=== PATIENT | female | born 1985 | race African-American/Black ===

== ENCOUNTER 2017-04-28 10:44 | Inpatient (IN) | payer OTHER ==
[~2017-04-28] VITALS: Ht 167.6 cm; Wt 122.5 kg
--- NOTE | 2017-04-28 13:34 | History & Physical ---
General Information and HPI MD Statement: I have seen and personally examined QUINN BAILEY and documented this H&P. The patient is a 32 year old female at 40[] weeks and4 [] days gestation who presented with a chief complaint of []. 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 No Contractions: Q 3 MINUTES Patient for Induction? No Labs Blood Type & Rh: O POSITIVE Antibody Screen: NEG Hct/Hgb & Platelets #1: Hct/Hgb & Platelets #2: Rubella: IMMUNE VDRL #1: NR VDRL #2: NR HbsAg: NEG HIV #1: NEG HIV #2 NEG 1 Hr P Group B Strep: NEG Initial Ultrasound: NL Anatomy Ultrasound: NL Genetic Testing: NL Assessment/Plan As Ranked By This Provider Problem List: 1. Core Measures/Miscellaneous Venous Thromboembolism VTE Risk Factors: / VTE Contraindications: No Contraindications VTE Diagnosis: No Beta Mago Is Beta Mago a Home Med? No Antibiotics Is Patient on Antibiotics? No
[2017-04-28 13:56] LABS: ABSOLUTE BASOPHIL COUNT 0 /CUMM (0.0-0.2); ABSOLUTE EOSINOPHIL COUNT 0 /CUMM (0.0-0.7); ABSOLUTE GRANULOCYTE CT 9.2 /CUMM (1.4-6.5); ABSOLUTE LYMPH COUNT 1.6 /CUMM (1.2-3.4); ABSOLUTE MONOCYTE COUNT 0.8 /CUMM (0.10-0.60); BASOPHIL % 0.1 % (0.0-2.0); EOSINOPHIL % 0.1 % (0-5); GRANULOCYTE % 79.1 % (42.2-75.2); HEMATOCRIT 32.2 % (37-47); MEAN CORPUSCULAR HGB 25.7 PG (27.0-31.0); MEAN CORPUSCULAR HGB CONC 32.3 G/DL (33.0-37.0); MEAN CORPUSCULAR VOLUME 79.5 FL (81.0-99.0); MEAN PLATELET VOLUME 8.4 FL (7.4-10.4); PLATELET COUNT 301 /CUMM (130-400); RBC DISTRIBUTION WIDTH 16.3 % (11.5-14.5); RED BLOOD CELL CT 4.05 /CUMM (4.20-5.40); WHITE BLOOD CELL COUNT 11.6 /CUMM (4.8-10.8)
[2017-04-28] MEDS ORDERED: PRENATABS RX T1 EACH PO (13:58)
[2017-04-28] MEDS ORDERED: FERRALET 90 TA1 EACH PO (14:01)
--- NOTE | 2017-04-28 17:57 | Labor & Delivery Summary ---
Delivery Summary Vaginal Delivery: Vaginal: vertex : : vacuum (POOR MATERNAL EFFORT DELIVERY ) Episiotomy/Lacerations: Type: MIDLINE Repair: 3 O Anesthesia: CHLROPROCAINE Placenta: Placenta: spontanteous, normal, 3 vessel Anesthesia: block Additional Comments: Vacuum assisted vaginal delivery secondary to poor maternal effort and meconium. Third application of vacuum was spontaneous delivery of vertex over on midline episiotomy without extension cord was doubly clamped and cut infant was handed rn outpatient surgery was present for the resuscitation on the repair was done under local block with 30 on the rectum and cervix were checked for sutures after repair the placenta was delivered by continuous cord traction intact 3 vessel cord and sent to pathology EBL 500 patient's blood type is Rh+
[2017-04-28 21:32] VITALS: BP 122/66
[2017-04-29 08:14] LABS: ABSOLUTE BASOPHIL COUNT 0 /CUMM (0.0-0.2); ABSOLUTE EOSINOPHIL COUNT 0 /CUMM (0.0-0.7); ABSOLUTE GRANULOCYTE CT 19.3 /CUMM (1.4-6.5); ABSOLUTE MONOCYTE COUNT 1.1 /CUMM (0.10-0.60); BASOPHIL % 0.2 % (0.0-2.0); EOSINOPHIL % 0.1 % (0-5); MEAN CORPUSCULAR HGB 26.5 PG (27.0-31.0); MEAN CORPUSCULAR VOLUME 80.2 FL (81.0-99.0); MEAN PLATELET VOLUME 8.4 FL (7.4-10.4); RBC DISTRIBUTION WIDTH 16.6 % (11.5-14.5)
[2017-04-29 08:57] LABS: GRANULOCYTE % 90.1 % (42.2-75.2); HEMATOCRIT 26.4 % (37-47); PLATELET COUNT 226 /CUMM (130-400); WHITE BLOOD CELL COUNT 21.4 /CUMM (4.8-10.8)
[2017-04-30 08:45] LABS: ABSOLUTE BASOPHIL COUNT 0 /CUMM (0.0-0.2); ABSOLUTE EOSINOPHIL COUNT 0.1 /CUMM (0.0-0.7); ABSOLUTE GRANULOCYTE CT 13.3 /CUMM (1.4-6.5); ABSOLUTE LYMPH COUNT 1.1 /CUMM (1.2-3.4); ABSOLUTE MONOCYTE COUNT 1.4 /CUMM (0.10-0.60); BASOPHIL % 0 % (0.0-2.0); EOSINOPHIL % 0.4 % (0-5); GRANULOCYTE % 83.9 % (42.2-75.2); HEMATOCRIT 23.9 % (37-47); MEAN CORPUSCULAR HGB 25.7 PG (27.0-31.0); MEAN CORPUSCULAR HGB CONC 32.3 G/DL (33.0-37.0); MEAN CORPUSCULAR VOLUME 79.6 FL (81.0-99.0); MEAN PLATELET VOLUME 8.1 FL (7.4-10.4); PLATELET COUNT 196 /CUMM (130-400); RBC DISTRIBUTION WIDTH 16.8 % (11.5-14.5); RED BLOOD CELL CT 3.01 /CUMM (4.20-5.40); WHITE BLOOD CELL COUNT 15.9 /CUMM (4.8-10.8)
[2017-04-30] MEDS ORDERED: IBUPROFEN800 M1 PO (08:58)
[2017-04-30] MEDS ORDERED: AMPICILLIN TRI250 MG PO (08:58)
== END 2017-04-30 12:30 | DRG 775 ==
LOC: CBCO 10:44 → GNO 13:04
PROVIDERS: Obstetrics & Gynecology; ADMIT Specialist
PROC: 10D07Z6 Extraction of Products of Conception, Vacuum, Via Natural or Artificial Opening (ICD-10-PCS; principal; 2017-04-28)
PROC: 0DQR0ZZ Repair Anal Sphincter, Open Approach (ICD-10-PCS; 2017-04-28)
DX: O36.63X0 Maternal care for excessive fetal growth, third trimester, not applicable or unspecified (principal); O77.0 Labor and delivery complicated by meconium in amniotic fluid; Z37.0 Single live birth; O75.89 Other specified complications of labor and delivery; Z3A.40 40 weeks gestation of pregnancy; O66.5 Attempted application of vacuum extractor and forceps
CPT/HCPCS: GNOS; 36415; 81001; 87086; 87389; G0463; J0131; J0696; J7120